=== PATIENT | female | born 1965 ===

== ENCOUNTER 2016-08-23 02:28 | Emergency (ER) | payer MEDICAID ==
[2016-08-23 02:46] VITALS: O2SAT 97
--- NOTE | 2016-08-23 04:04 | C.PDOC ---
History Of Present Illness 51 year old patient is brought to the ED by ambulance for acute alcohol intoxication. Patient admits to drinking alcohol prior to arrival. Patient denies all other complaints and injuries at this time. (Paulo Fournier) History Per: Patient History/Exam Limitations: intoxication Onset/Duration Of Symptoms: Other Current Symptoms Are (Timing): Still Present Suicide/Self Injury Attempted (Context): None Modifying Factor(s): Alcohol Severity: None Pain Scale Rating Of: 0 Recent travel outside of the [place]: No Time Seen by Provider: 08/23/16 03:24 Chief Complaint (Nursing): Substance Abuse Past Medical History Reviewed: Historical Data, Nursing Documentation, Vital Signs - Medical History PMH: HTN Family History: States: Unknown Family Hx - Social History Hx Tobacco Use: No Hx Alcohol Use: Yes Hx Substance Use: No Vital Signs: Last Vital Signs Temp 97.7 F 08/23/16 09:50 Pulse 75 08/23/16 09:50 Resp 18 08/23/16 09:50 BP 140/85 08/23/16 09:50 Pulse Ox 97 08/23/16 09:50 Review Of Systems Except As Marked, All Systems Reviewed And Found Negative. Constitutional: Positive for: Other (intoxicated). Negative for: Fever Cardiovascular: Negative for: Chest Pain Respiratory: Negative for: Shortness of Breath Gastrointestinal: Negative for: Nausea, Vomiting Physical Exam - Physical Exam Appears: Non-toxic, No Acute Distress, Other (intoxicated) Skin: Warm, Dry Head: Atraumatic, Normacephalic Neck: Normal ROM, Supple Chest: Symmetrical Cardiovascular: Rhythm Regular Respiratory: Normal Breath Sounds, No Rales, No Rhonchi, No Wheezing Back: Normal Inspection Extremity: Normal ROM Neurological/Psych: Oriented x3 ED Course And Treatment O2 Sat by Pulse Oximetry: 97 (room air) Pulse Ox Interpretation: Normal ED OBSERVATION Date of observation admission: 08/23/16 Time of observation admission: 03:24 - Observation admission statement Patient is being placed in observation because:: acute alcohol intoxication (Paulo Fournier) - Goals of Observation Goals of observation are:: sobriety (Paulo Fournier) Disposition Counseled Patient/Family Regarding: Diagnosis - Disposition Disposition Time: 06:00 - POA Present On Arrival: None - Disposition Referrals: [facility] [Outside] Disposition: HOME/ ROUTINE Condition: STABLE Forms: General Discharge Instructions Print Language: OMANI - Clinical Impression Clinical Impression: Alcohol intoxication - Scribe Statement The provider has reviewed the documentation as recorded by the Scribe - Scribe Statement Susannah Rueda (Paulo Fournier) Provider Attestation: All medical record entries made by the Scribe were at my direction and personally dictated by me. I have reviewed the chart and agree that the record accurately reflects my personal performance of the history, physical exam, medical decision making, and the department course for this patient. I have also personally directed, reviewed, and agree with the discharge instructions and disposition. (Paulo Fournier) Addendum Addendum: 08/23/16 09:37 Pt now awake verbal steady gait Stable for discharge (Sadiq Easton)
[2016-08-23 09:54] VITALS: BP 140/85; PULSE 75; RESP 18; TEMP 97.7
== END 2016-08-23 10:28 | disposition home or self-care (01) ==
LOC: C.ER 02:28
DX: F10.120 Alcohol abuse with intoxication, uncomplicated (principal); Y90.9 Presence of alcohol in blood, level not specified

== ENCOUNTER 2016-08-26 02:21 | Emergency (ER) | payer MEDICAID ==
--- NOTE | 2016-08-26 02:51 | C.PDOC ---
History Of Present Illness 51 yo female w/pmhx of alcohol abuse BIBA due to alcohol intoxication. As per EMS, " she was found on street staggering". Pt admits, drinking a lot today. Pt is verbal, although appears acute alcohol intoxication, not in any apparent distress. Time Seen by Provider: 08/26/16 02:28 Chief Complaint (Nursing): Substance Abuse History Per: Patient, EMS Past Medical History Reviewed: Historical Data, Nursing Documentation, Vital Signs Vital Signs: Last Vital Signs Temp 97.8 F 08/26/16 06:30 Pulse 65 08/26/16 06:30 Resp 16 08/26/16 06:30 BP 135/82 08/26/16 06:30 Pulse Ox 94 L 08/27/16 18:59 - Medical History PMH: HTN Family History: States: Unknown Family Hx - Social History Hx Tobacco Use: No Hx Alcohol Use: Yes Hx Substance Use: No - Immunization History Hx Tetanus Toxoid Vaccination: No Hx Influenza Vaccination: No Hx Pneumococcal Vaccination: No Review Of Systems Review Of Systems: ROS cannot be obtained secondary to pt's inabilty to answer questions. (acute alcohol intoxication) Physical Exam - Physical Exam Appears: No Acute Distress Skin: Normal Color, Warm, No Ecchymosis Head: Atraumatic, Normacephalic Eye(s): bilateral: PERRL (sluggish reactive B/L) Nose: No Flaring, No Deformity Oral Mucosa: Moist, Other ((+) strong alcohol odor) Neck: No Midline Cervical Tenderness, No Paracervical Tenderness, No Step Off Deformity, Supple Chest: Symmetrical Cardiovascular: Rhythm Regular Respiratory: No Decreased Breath Sounds, No Accessory Muscle Use, No Stridor, No Wheezing Gastrointestinal/Abdominal: Soft, No Tenderness, No Distention, No Guarding Extremity: No Deformity Neurological/Psych: Normal Motor, Normal Sensation, Normal Reflexes ED Course And Treatment O2 Sat by Pulse Oximetry: 94 ED OBSERVATION Discharge: Yes Date of observation admission: 08/26/16 Time of observation admission: 02:40 - Observation admission statement Patient is being placed in observation because:: Alcohol intoxication - Goals of Observation Goals of observation are:: FSBS, serial neuro re-eval, sobriety - Progress Note Progress Note: 08/26/16 At 4:20, pt sleeping comfortably, not in any apparent distress. Pt is respond to verbal stimuli. Afebrile, hemodynamicaly stable. neurologicaly intact. FSBS 130 At 05:35, pt sleeping comfortably, not in any apparent distress. Pt is respond to verbal stimuli. Afebrile, hemodynamicaly stable. Neurologicaly intact. At 06:55, pt awake, alert#3, not in any apparent distress. Ambulatory in ED with stable gait. Tolerate po well in ED. Pt is stable for discharge now. Disposition - Disposition Referrals: [facility] at [facility] [Outside] Disposition: HOME/ ROUTINE Disposition Time: 07:00 Condition: STABLE Additional Instructions: Follow up with Clinic and detox in 1-2 days for re-evaluation and further tx as need return if any new changes. Instructions: Alcohol Intoxication (ED) Forms: General Discharge Instructions Print Language: GREENLANDIC - Clinical Impression Clinical Impression: Alcohol intoxication Physician Patient Turnover Patient Signed Over To: Cyril Rehman Handoff Comments: re-eval, sobriety, dispo
[2016-08-26 04:42] VITALS: RESP 16
[2016-08-26 05:37] VITALS: O2SAT 94
[2016-08-26 06:45] VITALS: BP 135/82; PULSE 65; TEMP 97.8
== END 2016-08-26 07:09 | disposition home or self-care (01) ==
LOC: C.ER 02:21
DX: F10.129 Alcohol abuse with intoxication, unspecified (principal); Y90.9 Presence of alcohol in blood, level not specified